=== PATIENT | female | born 1975 | race Two or more races ===

== ENCOUNTER 2017-08-08 17:05 | Emergency (ER) | payer OTHER ==
[2017-08-08] MEDS: BUPIVACAINE 0.5% 50 ML VIAL. SQ (17:32)
[2017-08-08] MEDS: LIDOCAINE 1% PF 2 ML VIAL. INJ (17:32)
[2017-08-08] MEDS: DIPHTH,PERTUSS(ACELL),TET TOX 0.5 ML DISP.SYRIN. VAX IM (17:37)
== END 2017-08-08 17:44 | disposition home or self-care (01) ==
LOC: ER 17:05
DX: W45.8XXA Other foreign body or object entering through skin, initial encounter (principal); S69.91XA Unspecified injury of right wrist, hand and finger(s), initial encounter; Y93.89 Activity, other specified; Y99.8 Other external cause status; Y92.89 Other specified places as the place of occurrence of the external cause
CPT/HCPCS: 90471; 90715; 96372; 99284; J3490